=== PATIENT | male | born 1985 | race African-American/Black ===

== ENCOUNTER 2022-02-22 20:13 | Emergency (ER) | payer MEDICAID ==
[~2022-02-22] VITALS: Ht 190.5 cm; Wt 106.0 kg
[2022-02-22 21:33] VITALS: BP 140/78
== END 2022-02-22 22:36 | disposition home or self-care (01) ==
LOC: EMS 20:14
DX: S93.601A Unspecified sprain of right foot, initial encounter (principal); F12.90 Cannabis use, unspecified, uncomplicated; X50.1XXA Overexertion from prolonged static or awkward postures, initial encounter; Y93.89 Activity, other specified; Y92.89 Other specified places as the place of occurrence of the external cause; Y99.8 Other external cause status
CPT/HCPCS: 99283

== ENCOUNTER 2022-09-21 23:33 | Emergency (ER) | payer MEDICAID, OTHER ==
[~2022-09-21] VITALS: Ht 193 cm; Wt 95.5 kg
[2022-09-22 00:05] VITALS: BP 133/78
[2022-09-22] MEDS ORDERED: KETOROLAC TROMETHAMINE 30 MG/ML VIAL IM ONE (00:15)
[2022-09-22] MEDS ORDERED: CYCL-448 PO (02:05)
== END 2022-09-22 02:20 | disposition home or self-care (01) ==
LOC: EMS 23:35
DX: M54.9 Dorsalgia, unspecified (principal); F12.90 Cannabis use, unspecified, uncomplicated
CPT/HCPCS: 99283; 72100; 96372; J1885